=== PATIENT | male | born 1950 | race Caucasian/White ===

== ENCOUNTER 2018-02-07 08:35 | Inpatient (IN) | payer MEDICARE, OTHER ==
[~2018-02-07] VITALS: Ht 185.4 cm; Wt 130.2 kg
[2018-02-07] MEDS ORDERED: metoprolol tartrate 1mg/ml inj IV ONE (08:50)
[2018-02-07] MEDS ORDERED: furosemide 10 MG/1 ML 10ml inj IV ONE (08:50)
[2018-02-07] MEDS ORDERED: aspirin 81mg tab.chew PO ONE (08:50)
[2018-02-07 09:17] LABS: BASOPHILS % (AUTO) 0.4 % (0-1); EOSINOPHILS # (AUTO) 0.2 X10'3 (0-0.9); EOSINOPHILS % (AUTO) 1.6 % (0-6); HEMATOCRIT 44.9 % (42.0-52.0); HEMOGLOBIN 14.9 g/dl (14.0-17.9); LYMPHOCYTES # (AUTO) 1.4 X10'3 (1.1-4.8); LYMPHOCYTES % (AUTO) 14.7 % (21-51); MEAN CORPUSCULAR HEMOGLOBIN 28.3 PG (27.0-31.0); MEAN CORPUSCULAR HGB CONC 33.1 % (33.0-36.5); MEAN CORPUSCULAR VOLUME 85.5 FL (78-98); MEAN PLATELET VOLUME 7.4 FL (7.4-10.4); MONOCYTES # (AUTO) 0.8 X10'3 (0-0.9); MONOCYTES % (AUTO) 8.7 % (2-12); NEUTROPHILS # (AUTO) 7.3 X10'3 (1.8-7.7); NEUTROPHILS % (AUTO) 74.6 % (42-75); PLATELET COUNT 271 X10'3 (140-440); RED BLOOD COUNT 5.26 X10'6 (4.70-6.10); RED CELL DISTRIBUTION WIDTH 15.2 % (11.5-14.5); WHITE BLOOD COUNT 9.8 X10'3 (4.5-11.0)
[2018-02-07 09:28] LABS: D-DIMER 0.97 MG/L FEU (0-0.50)
[2018-02-07 09:32] LABS: ALANINE AMINOTRANSFERASE 27 U/L (12-78); ALBUMIN 3.2 G/DL (3.4-5.0); ALBUMIN/GLOBULIN RATIO 0.7 (1.1-1.5); ALKALINE PHOSPHATASE 86 IU/L (46-116); ANION GAP 12 (8-16); ASPARTATE AMINO TRANSFERASE 18 U/L (10-37); BILIRUBIN,TOTAL 0.6 MG/DL (0.1-1.0); BLOOD UREA NITROGEN 29 MG/DL (7-18); CALCIUM 8.9 MG/DL (8.5-10.1); CHLORIDE 103 MMOL/L (99-107); CREATININE 2.07 MG/DL (0.60-1.10); GLUCOSE 167 MG/DL (70-104); POTASSIUM 3.7 MMOL/L (3.5-5.1); SODIUM 139 MMOL/L (135-145); TOTAL CARBON DIOXIDE 24.4 MMOL/L (24-32); TOTAL PROTEIN 7.6 G/DL (6.4-8.2); eGFR 32 ML/MIN
[2018-02-07] MEDS ORDERED: magnesium Cl slow-release 64mg tablet PO PRN (10:30)
[2018-02-07] MEDS ORDERED: ondansetron/PF 4mg/2ml inj IV PRN (10:30)
[2018-02-07] MEDS ORDERED: potassium Cl 20 mEq SR tablet PO PRN (10:30)
[2018-02-07] MEDS ORDERED: mag hydrox/Alum hydrox/simeth 30ml oral suspension PO PRN (10:30)
[2018-02-07] MEDS ORDERED: magnesium 4gm in 100ml NS 100 ML IV PRN (10:30)
[2018-02-07] MEDS ORDERED: magnesium hydroxide 30ml (MOM) UD suspension PO PRN (10:30)
[2018-02-07] MEDS ORDERED: potassium Cl 40MEQ/NS 500ml 500 ML IV PRN ×2 (10:30)
[2018-02-07] MEDS ORDERED: magnesium 2GM in 50ml NS 50 ML IV PRN (10:30)
[2018-02-07] MEDS ORDERED: VITA400C21 PO (10:36)
[2018-02-07] MEDS ORDERED: CHOL10002 PO (10:36)
[2018-02-07] MEDS ORDERED: MULT-38 PO (10:36)
[2018-02-07] MEDS ORDERED: dextrose ORAL solution 15 GM/59 ML bottle PO PRN ×2 (10:45)
[2018-02-07] MEDS ORDERED: dextrose 50%-water 50ml dispensing syringe IV PRN ×2 (10:45)
[2018-02-07] MEDS ORDERED: glucagon, human recombinant 1mg kit SUBCUT PRN (10:45)
[2018-02-07] MEDS ORDERED: MESSAGE TO PHARMACY PO ONE (10:45)
[2018-02-07] MEDS ORDERED: insulin Lispro (HumaLOG) vial - multi-dose SQ SCH (10:45)
[2018-02-07 11:04] LABS: HEMOGLOBIN A1C 7.2 % (4.5-6.2)
[2018-02-07 12:40] VITALS: BP 151/91
[2018-02-07 16:06] VITALS: BP 155/89
[2018-02-07 19:00] VITALS: BP 151/88
[2018-02-07] MEDS: carvedilol 6.25mg tablet PO SCH (19:19)
[2018-02-07] MEDS: furosemide 40mg/4ml inj IV SCH (19:19)
[2018-02-07] MEDS: heparin, porcine 5000 units/ml vial SQ SCH (19:20)
[2018-02-07] MEDS: acetaminophen 325mg tablet PO PRN (20:29)
[2018-02-07] MEDS: insulin glargine (Lantus) pen - multi-dose SQ SCH (20:32)
[2018-02-07 23:00] VITALS: BP 149/85
[2018-02-08] VITALS (7 sets, daily range): BP systolic 122–184; BP diastolic 77–91
[2018-02-08 05:43] LABS: BASOPHILS % (AUTO) 0.6 % (0-1); EOSINOPHILS # (AUTO) 0.2 X10'3 (0-0.9); EOSINOPHILS % (AUTO) 2.5 % (0-6); HEMATOCRIT 43.1 % (42.0-52.0); LYMPHOCYTES # (AUTO) 2.2 X10'3 (1.1-4.8); LYMPHOCYTES % (AUTO) 26.5 % (21-51); MEAN CORPUSCULAR HEMOGLOBIN 28.1 PG (27.0-31.0); MEAN CORPUSCULAR HGB CONC 32.5 % (33.0-36.5); MEAN CORPUSCULAR VOLUME 86.4 FL (78-98); MONOCYTES # (AUTO) 0.9 X10'3 (0-0.9); MONOCYTES % (AUTO) 10.4 % (2-12); NEUTROPHILS # (AUTO) 4.9 X10'3 (1.8-7.7); PLATELET COUNT 255 X10'3 (140-440); RED BLOOD COUNT 4.99 X10'6 (4.70-6.10); RED CELL DISTRIBUTION WIDTH 14.2 % (11.5-14.5); WHITE BLOOD COUNT 8.2 X10'3 (4.5-11.0)
[2018-02-08 05:54] LABS: ALANINE AMINOTRANSFERASE 22 U/L (12-78); ALBUMIN 2.9 G/DL (3.4-5.0); ALBUMIN/GLOBULIN RATIO 0.8 (1.1-1.5); ALKALINE PHOSPHATASE 76 IU/L (46-116); ANION GAP 10 (8-16); ASPARTATE AMINO TRANSFERASE 18 U/L (10-37); BILIRUBIN,TOTAL 0.6 MG/DL (0.1-1.0); BLOOD UREA NITROGEN 30 MG/DL (7-18); BUN/CREATININE RATIO 13.6 (5.4-32.0); CALCIUM 8.4 MG/DL (8.5-10.1); CHLORIDE 105 MMOL/L (99-107); CHOL/HDL RATIO 4.5 (0.00-4.99); CHOLESTEROL 204 MG/DL (0-200); GLUCOSE 124 MG/DL (70-104); HDL CHOLESTEROL 45 MG/DL (35-60); LDL CHOLESTEROL 141 MG/DL (50-100); MAGNESIUM 1.9 MG/DL (1.5-2.4); POTASSIUM 3.4 MMOL/L (3.5-5.1); SODIUM 142 MMOL/L (135-145); TOTAL CARBON DIOXIDE 26.9 MMOL/L (24-32); TOTAL PROTEIN 6.7 G/DL (6.4-8.2); TRIGLYCERIDES 118 MG/DL (20-135); eGFR 30 ML/MIN
[2018-02-08] MEDS: heparin, porcine 5000 units/ml vial SQ SCH ×2 (07:09→19:46)
[2018-02-08] MEDS: potassium Cl 20 mEq SR tablet PO PRN ×3 (07:10→19:47)
[2018-02-08] MEDS: carvedilol 6.25mg tablet PO SCH ×2 (07:10→19:45)
[2018-02-08] MEDS: acetaminophen 325mg tablet PO PRN (07:40)
[2018-02-08] MEDS: K and/or MAG REPLACEMENT MC SCH (08:00)
[2018-02-08] MEDS: furosemide 40mg/4ml inj IV SCH (10:31)
[2018-02-08] MEDS: ipratropium/albuterol 3ml nebule NEB PRN (12:51)
[2018-02-08] MEDS: insulin glargine (Lantus) pen - multi-dose SQ SCH (21:00)
[2018-02-09 03:00] VITALS: BP 152/88
[2018-02-09 05:16] LABS: BASOPHILS % (AUTO) 0.4 % (0-1); EOSINOPHILS # (AUTO) 0.3 X10'3 (0-0.9); EOSINOPHILS % (AUTO) 2.9 % (0-6); HEMATOCRIT 41.2 % (42.0-52.0); HEMOGLOBIN 13.7 g/dl (14.0-17.9); LYMPHOCYTES # (AUTO) 2.5 X10'3 (1.1-4.8); LYMPHOCYTES % (AUTO) 25.2 % (21-51); MEAN CORPUSCULAR HEMOGLOBIN 28.4 PG (27.0-31.0); MEAN CORPUSCULAR HGB CONC 33.2 % (33.0-36.5); MEAN CORPUSCULAR VOLUME 85.5 FL (78-98); MEAN PLATELET VOLUME 7.6 FL (7.4-10.4); MONOCYTES # (AUTO) 1.1 X10'3 (0-0.9); MONOCYTES % (AUTO) 10.7 % (2-12); NEUTROPHILS % (AUTO) 60.8 % (42-75); PLATELET COUNT 253 X10'3 (140-440); RED BLOOD COUNT 4.82 X10'6 (4.70-6.10); RED CELL DISTRIBUTION WIDTH 14.9 % (11.5-14.5); WHITE BLOOD COUNT 9.9 X10'3 (4.5-11.0)
[2018-02-09] MEDS: ipratropium/albuterol 3ml nebule NEB PRN ×2 (05:23→07:38)
[2018-02-09 05:49] LABS: ALANINE AMINOTRANSFERASE 24 U/L (12-78); ALBUMIN 2.9 G/DL (3.4-5.0); ALBUMIN/GLOBULIN RATIO 0.7 (1.1-1.5); ALKALINE PHOSPHATASE 76 IU/L (46-116); ANION GAP 11 (8-16); ASPARTATE AMINO TRANSFERASE 21 U/L (10-37); BILIRUBIN,TOTAL 0.5 MG/DL (0.1-1.0); BLOOD UREA NITROGEN 32 MG/DL (7-18); BUN/CREATININE RATIO 14.5 (5.4-32.0); CALCIUM 8.5 MG/DL (8.5-10.1); CHLORIDE 104 MMOL/L (99-107); GLUCOSE 136 MG/DL (70-104); MAGNESIUM 2.2 MG/DL (1.5-2.4); POTASSIUM 3.9 MMOL/L (3.5-5.1); SODIUM 142 MMOL/L (135-145); TOTAL PROTEIN 6.9 G/DL (6.4-8.2); eGFR 30 ML/MIN
[2018-02-09 06:00] VITALS: BP 145/85
[2018-02-09] MEDS: carvedilol 6.25mg tablet PO SCH ×2 (07:44→20:13)
[2018-02-09] MEDS: heparin, porcine 5000 units/ml vial SQ SCH ×2 (07:45→20:14)
[2018-02-09] MEDS: furosemide 40mg/4ml inj IV SCH (07:51)
[2018-02-09] MEDS: K and/or MAG REPLACEMENT MC SCH (07:56)
[2018-02-09 11:00] VITALS: BP 132/82
[2018-02-09 15:00] VITALS: BP 133/84
[2018-02-09] MEDS ORDERED: mag hydrox/Alum hydrox/simeth 30ml oral suspension PO ONE (15:25)
[2018-02-09] MEDS: pantoprazole 40mg Tablet.DR PO SCH (15:42)
[2018-02-09 18:00] VITALS: BP 129/77
[2018-02-09] MEDS: insulin glargine (Lantus) pen - multi-dose SQ SCH (21:00)
[2018-02-09 22:00] VITALS: BP 157/89
[2018-02-10 02:00] VITALS: BP 132/79
[2018-02-10 05:21] LABS: BASOPHILS % (AUTO) 0.5 % (0-1); EOSINOPHILS # (AUTO) 0.3 X10'3 (0-0.9); EOSINOPHILS % (AUTO) 2.6 % (0-6); HEMATOCRIT 39.6 % (42.0-52.0); HEMOGLOBIN 13.1 g/dl (14.0-17.9); LYMPHOCYTES # (AUTO) 2.4 X10'3 (1.1-4.8); LYMPHOCYTES % (AUTO) 23.5 % (21-51); MEAN CORPUSCULAR HEMOGLOBIN 28.3 PG (27.0-31.0); MEAN CORPUSCULAR HGB CONC 33.2 % (33.0-36.5); MEAN CORPUSCULAR VOLUME 85.4 FL (78-98); MEAN PLATELET VOLUME 7.7 FL (7.4-10.4); MONOCYTES # (AUTO) 1.1 X10'3 (0-0.9); MONOCYTES % (AUTO) 10.7 % (2-12); NEUTROPHILS # (AUTO) 6.3 X10'3 (1.8-7.7); NEUTROPHILS % (AUTO) 62.7 % (42-75); PLATELET COUNT 242 X10'3 (140-440); RED BLOOD COUNT 4.64 X10'6 (4.70-6.10); RED CELL DISTRIBUTION WIDTH 14.7 % (11.5-14.5); WHITE BLOOD COUNT 10.1 X10'3 (4.5-11.0)
[2018-02-10 05:49] LABS: ALANINE AMINOTRANSFERASE 25 U/L (12-78); ALBUMIN 2.9 G/DL (3.4-5.0); ALBUMIN/GLOBULIN RATIO 0.8 (1.1-1.5); ALKALINE PHOSPHATASE 73 IU/L (46-116); ANION GAP 10 (8-16); ASPARTATE AMINO TRANSFERASE 23 U/L (10-37); BILIRUBIN,TOTAL 0.5 MG/DL (0.1-1.0); BLOOD UREA NITROGEN 35 MG/DL (7-18); BUN/CREATININE RATIO 15.1 (5.4-32.0); CALCIUM 8.2 MG/DL (8.5-10.1); CHLORIDE 102 MMOL/L (99-107); CREATININE 2.32 MG/DL (0.60-1.10); GLUCOSE 129 MG/DL (70-104); MAGNESIUM 2.4 MG/DL (1.5-2.4); POTASSIUM 4.2 MMOL/L (3.5-5.1); SODIUM 139 MMOL/L (135-145); TOTAL CARBON DIOXIDE 26.8 MMOL/L (24-32); TOTAL PROTEIN 6.7 G/DL (6.4-8.2); eGFR 28 ML/MIN
[2018-02-10 06:00] VITALS: BP 142/86
[2018-02-10] MEDS: carVEDilol 12.5mg tablet PO SCH ×2 (07:16→20:04)
[2018-02-10] MEDS: furosemide 40mg/4ml inj IV SCH (07:16)
[2018-02-10] MEDS: heparin, porcine 5000 units/ml vial SQ SCH ×2 (07:17→20:05)
[2018-02-10] MEDS: pantoprazole 40mg Tablet.DR PO SCH (07:17)
[2018-02-10] MEDS: K and/or MAG REPLACEMENT MC SCH (07:23)
[2018-02-10] MEDS: ipratropium/albuterol 3ml nebule NEB PRN (07:59)
[2018-02-10] MEDS ORDERED: carVEDilol 3.125mg tablet PO SCH (08:00)
[2018-02-10] MEDS: aspirin 81mg tab.chew PO SCH (09:02)
[2018-02-10 11:00] VITALS: BP 144/83
[2018-02-10] MEDS: azithromycin/NS 500mg/250ml 250 ML IV SCH (12:39)
[2018-02-10] MEDS: CefTRIAXone 2gm/D5W 50ml 50 ML IV SCH (13:50)
[2018-02-10 19:00] VITALS: BP 139/80
[2018-02-10] MEDS: furosemide 20 MG/2 ML vial IV SCH (20:04)
[2018-02-10] MEDS: lactobacillus rhamnosus 10,000 MMU CELLS/CAPSULE PO SCH (20:04)
[2018-02-10] MEDS: insulin glargine (Lantus) pen - multi-dose SQ SCH (21:00)
[2018-02-10 23:00] VITALS: BP 128/81
[2018-02-11 03:00] VITALS: BP 139/79
[2018-02-11 05:17] LABS: BASOPHILS % (AUTO) 0.5 % (0-1); EOSINOPHILS # (AUTO) 0.2 X10'3 (0-0.9); EOSINOPHILS % (AUTO) 2.3 % (0-6); HEMATOCRIT 39.3 % (42.0-52.0); HEMOGLOBIN 13.1 g/dl (14.0-17.9); LYMPHOCYTES # (AUTO) 1.9 X10'3 (1.1-4.8); LYMPHOCYTES % (AUTO) 20.6 % (21-51); MEAN CORPUSCULAR HEMOGLOBIN 28.5 PG (27.0-31.0); MEAN CORPUSCULAR HGB CONC 33.4 % (33.0-36.5); MEAN CORPUSCULAR VOLUME 85.3 FL (78-98); MEAN PLATELET VOLUME 7.6 FL (7.4-10.4); MONOCYTES % (AUTO) 11.3 % (2-12); NEUTROPHILS % (AUTO) 65.3 % (42-75); PLATELET COUNT 231 X10'3 (140-440); RED CELL DISTRIBUTION WIDTH 14.5 % (11.5-14.5); WHITE BLOOD COUNT 9.1 X10'3 (4.5-11.0)
[2018-02-11 05:28] LABS: ALANINE AMINOTRANSFERASE 29 U/L (12-78); ALBUMIN 2.9 G/DL (3.4-5.0); ALBUMIN/GLOBULIN RATIO 0.8 (1.1-1.5); ALKALINE PHOSPHATASE 70 IU/L (46-116); ANION GAP 11 (8-16); BILIRUBIN,TOTAL 0.6 MG/DL (0.1-1.0); BLOOD UREA NITROGEN 40 MG/DL (7-18); BUN/CREATININE RATIO 17.8 (5.4-32.0); CALCIUM 8.2 MG/DL (8.5-10.1); CHLORIDE 102 MMOL/L (99-107); CREATININE 2.25 MG/DL (0.60-1.10); GLUCOSE 119 MG/DL (70-104); MAGNESIUM 2.4 MG/DL (1.5-2.4); SODIUM 139 MMOL/L (135-145); TOTAL CARBON DIOXIDE 25.9 MMOL/L (24-32); TOTAL PROTEIN 6.7 G/DL (6.4-8.2); eGFR 29 ML/MIN
[2018-02-11 05:29] LABS: ASPARTATE AMINO TRANSFERASE 31 U/L (10-37); POTASSIUM 3.8 MMOL/L (3.5-5.1)
[2018-02-11 06:59] VITALS: BP 146/77
[2018-02-11] MEDS: K and/or MAG REPLACEMENT MC SCH (07:10)
[2018-02-11] MEDS: heparin, porcine 5000 units/ml vial SQ SCH ×2 (08:03→21:16)
[2018-02-11] MEDS: carVEDilol 12.5mg tablet PO SCH ×2 (08:03→21:19)
[2018-02-11] MEDS: pantoprazole 40mg Tablet.DR PO SCH (08:03)
[2018-02-11] MEDS: lactobacillus rhamnosus 10,000 MMU CELLS/CAPSULE PO SCH ×2 (08:03→21:16)
[2018-02-11] MEDS: furosemide 20 MG/2 ML vial IV SCH ×2 (08:03→21:15)
[2018-02-11] MEDS: CefTRIAXone 2gm/D5W 50ml 50 ML IV SCH (08:03)
[2018-02-11] MEDS: aspirin 81mg tab.chew PO SCH (08:03)
[2018-02-11] MEDS: azithromycin/NS 500mg/250ml 250 ML IV SCH (08:03)
[2018-02-11] MEDS ORDERED: ipratropium/albuterol 3ml nebule ONE (08:59)
[2018-02-11] MEDS ORDERED: ipratropium/albuterol 3ml nebule NEB ONE (09:30)
[2018-02-11 11:44] VITALS: BP 120/78
[2018-02-11 16:04] VITALS: BP 142/78
[2018-02-11 19:00] VITALS: BP 140/82
[2018-02-11] MEDS: insulin glargine (Lantus) pen - multi-dose SQ SCH (21:00)
[2018-02-11 23:00] VITALS: BP 142/84
[2018-02-12 03:00] VITALS: BP 132/80
[2018-02-12 05:23] LABS: BASOPHILS % (AUTO) 0.4 % (0-1); EOSINOPHILS # (AUTO) 0.2 X10'3 (0-0.9); EOSINOPHILS % (AUTO) 2.7 % (0-6); HEMATOCRIT 39.6 % (42.0-52.0); HEMOGLOBIN 13.2 g/dl (14.0-17.9); LYMPHOCYTES # (AUTO) 1.9 X10'3 (1.1-4.8); LYMPHOCYTES % (AUTO) 23.3 % (21-51); MEAN CORPUSCULAR HEMOGLOBIN 28.4 PG (27.0-31.0); MEAN CORPUSCULAR HGB CONC 33.4 % (33.0-36.5); MEAN CORPUSCULAR VOLUME 85.1 FL (78-98); MEAN PLATELET VOLUME 7.8 FL (7.4-10.4); MONOCYTES % (AUTO) 11.9 % (2-12); NEUTROPHILS # (AUTO) 5.1 X10'3 (1.8-7.7); NEUTROPHILS % (AUTO) 61.7 % (42-75); PLATELET COUNT 226 X10'3 (140-440); RED BLOOD COUNT 4.65 X10'6 (4.70-6.10); RED CELL DISTRIBUTION WIDTH 14.7 % (11.5-14.5); WHITE BLOOD COUNT 8.2 X10'3 (4.5-11.0)
[2018-02-12 05:34] LABS: ALANINE AMINOTRANSFERASE 34 U/L (12-78); ALBUMIN/GLOBULIN RATIO 0.8 (1.1-1.5); ALKALINE PHOSPHATASE 71 IU/L (46-116); ANION GAP 9 (8-16); ASPARTATE AMINO TRANSFERASE 30 U/L (10-37); BILIRUBIN,TOTAL 0.5 MG/DL (0.1-1.0); BLOOD UREA NITROGEN 42 MG/DL (7-18); BUN/CREATININE RATIO 18.5 (5.4-32.0); CALCIUM 8.7 MG/DL (8.5-10.1); CHLORIDE 103 MMOL/L (99-107); CREATININE 2.27 MG/DL (0.60-1.10); GLUCOSE 109 MG/DL (70-104); MAGNESIUM 2.4 MG/DL (1.5-2.4); SODIUM 140 MMOL/L (135-145); TOTAL CARBON DIOXIDE 28.1 MMOL/L (24-32); TOTAL PROTEIN 6.9 G/DL (6.4-8.2); eGFR 29 ML/MIN
[2018-02-12 05:44] LABS: POTASSIUM 3.8 MMOL/L (3.5-5.1)
[2018-02-12 06:58] VITALS: BP 158/86
[2018-02-12] MEDS: K and/or MAG REPLACEMENT MC SCH (07:09)
[2018-02-12] MEDS: CefTRIAXone 2gm/D5W 50ml 50 ML IV SCH (07:29)
[2018-02-12] MEDS: furosemide 20 MG/2 ML vial IV SCH (07:30)
[2018-02-12] MEDS: aspirin 81mg tab.chew PO SCH (07:30)
[2018-02-12] MEDS: carVEDilol 12.5mg tablet PO SCH (07:30)
[2018-02-12] MEDS: pantoprazole 40mg Tablet.DR PO SCH (07:30)
[2018-02-12] MEDS: heparin, porcine 5000 units/ml vial SQ SCH (07:30)
[2018-02-12] MEDS: lactobacillus rhamnosus 10,000 MMU CELLS/CAPSULE PO SCH (07:30)
[2018-02-12] MEDS ORDERED: azithromycin 250mg tablet PO SCH (08:00)
[2018-02-12] MEDS ORDERED: CARV-50 PO (11:23)
[2018-02-12] MEDS ORDERED: CEFD300C3 PO (11:23)
[2018-02-12] MEDS ORDERED: LISI2.5T2 PO (11:23)
[2018-02-12] MEDS ORDERED: ASPI81TA52 PO (11:23)
[2018-02-12] MEDS ORDERED: FURO-149 PO (11:23)
[2018-02-12 12:12] VITALS: BP 130/81
[2018-02-12] MEDS ORDERED: LANC1COM2 SUBCUT (16:20)
[2018-02-12] MEDS ORDERED: LANTUS SQ (16:20)
[2018-02-12] MEDS ORDERED: SYRI-641 SQ (16:20)
== END 2018-02-12 12:25 | disposition home or self-care (01) | DRG 291 ==
LOC: ER 08:35 → ED HOLD 10:30 → EDBEDREQ 11:39 → PCU 3S 12:56
PROVIDERS: ADMIT Internal Medicine; ATTEND Family Medicine
DX: I13.0 Hypertensive heart and chronic kidney disease with heart failure and stage 1 through stage 4 chronic kidney disease, or unspecified chronic kidney disease (principal); J96.90 Respiratory failure, unspecified, unspecified whether with hypoxia or hypercapnia; I50.31 Acute diastolic (congestive) heart failure; J18.9 Pneumonia, unspecified organism; N17.9 Acute kidney failure, unspecified; E11.22 Type 2 diabetes mellitus with diabetic chronic kidney disease; N18.9 Chronic kidney disease, unspecified; Z77.22 Contact with and (suspected) exposure to environmental tobacco smoke (acute) (chronic); M79.89 Other specified soft tissue disorders; E66.9 Obesity, unspecified; J44.9 Chronic obstructive pulmonary disease, unspecified; G47.30 Sleep apnea, unspecified; Z80.42 Family history of malignant neoplasm of prostate; Z83.3 Family history of diabetes mellitus; Z59.9 Problem related to housing and economic circumstances, unspecified; Z68.37 Body mass index [BMI] 37.0-37.9, adult
CPT/HCPCS: 36415; 71045; 71250; 76775; 78582; 80053; 80061; 82948; 83036; 83735; 83880; 84484; 85025; 85379; 87070; 93005; 93306; 93970; 94640; 94760; 96374; 96375; 99285; A9539; A9540; J0456; J0696; J1644; J1815; J1940; J3490; J7030

== ENCOUNTER 2019-04-15 21:52 | Inpatient (IN) | payer MEDICARE, OTHER ==
[~2019-04-15] VITALS: Ht 185.4 cm; Wt 122.7 kg
[~2019-04-15 21:52] MED LIST: ASPI81TA52 PO; CARV-50 PO; CHOL10002 PO; FURO-149 PO; LANC1COM2 SUBCUT; LISI2.5T2 PO; MULT-38 PO; SYRI-641 SQ; VITA400C21 PO
[2019-04-15 22:30] LABS: BASOPHILS % (AUTO) 0.2 % (0-1); EOSINOPHILS % (AUTO) 0.1 % (0-6); HEMATOCRIT 37.8 % (42.0-52.0); HEMOGLOBIN 12.6 g/dl (14.0-17.9); LYMPHOCYTES # (AUTO) 0.3 X10'3 (1.1-4.8); LYMPHOCYTES % (AUTO) 1.5 % (21-51); MEAN CORPUSCULAR HEMOGLOBIN 30.2 PG (27.0-31.0); MEAN CORPUSCULAR HGB CONC 33.4 g/dL (33.0-36.5); MEAN CORPUSCULAR VOLUME 90.2 FL (78-98); MEAN PLATELET VOLUME 7.3 FL (7.4-10.4); MONOCYTES # (AUTO) 1.4 X10'3 (0-0.9); NEUTROPHILS # (AUTO) 18.8 X10'3 (1.8-7.7); NEUTROPHILS % (AUTO) 91.2 % (42-75); PLATELET COUNT 184 X10'3 (140-440); RED BLOOD COUNT 4.19 X10'6 (4.70-6.10); RED CELL DISTRIBUTION WIDTH 15.1 % (11.5-14.5); WHITE BLOOD COUNT 20.6 X10'3 (4.5-11.0)
[2019-04-15 22:42] LABS: ALANINE AMINOTRANSFERASE 25 U/L (12-78); ALBUMIN 3.6 G/DL (3.4-5.0); ALKALINE PHOSPHATASE 60 IU/L (46-116); ANION GAP 12 (8-16); ASPARTATE AMINO TRANSFERASE 17 U/L (10-37); BILIRUBIN,TOTAL 0.5 MG/DL (0.1-1.0); BLOOD UREA NITROGEN 51 MG/DL (7-18); BUN/CREATININE RATIO 21.3 (5.4-32.0); CHLORIDE 104 MMOL/L (99-107); CREATININE 2.39 MG/DL (0.60-1.10); GLUCOSE 116 MG/DL (70-104); SODIUM 138 MMOL/L (135-145); TOTAL CARBON DIOXIDE 21.7 MMOL/L (24-32); TOTAL PROTEIN 7.3 G/DL (6.4-8.2); eGFR 27 ML/MIN
[2019-04-15 22:44] LABS: PARTIAL THROMBOPLASTIN TIME 31 SECONDS (22-32)
[2019-04-15] MEDS ORDERED: ALLO100T PO (22:51)
[2019-04-15] MEDS ORDERED: SODI325T PO (22:51)
[2019-04-15] MEDS ORDERED: FLO0.4C PO (22:51)
[2019-04-15] MEDS ORDERED: furosemide 40mg/4ml inj IV ONE (23:45)
[2019-04-15] MEDS ORDERED: furosemide 10 MG/1 ML 10ml inj IV ONE (23:45)
--- NOTE | 2019-04-15 23:55 | NUR ---
Spoke with Dr Duong regarding order for 80mg of lasix to be given MD made aware of BP 106/52. per Dr Duong medication to be given as ordered at this time.
[2019-04-16] MEDS ORDERED: furosemide 10 MG/1 ML 10ml inj IV ONE (00:05)
[2019-04-16] MEDS ORDERED: furosemide 20 MG/2 ML vial IV ONE (00:10)
--- NOTE | 2019-04-16 00:16 | NUR ---
Patient refused 80mg of lasix, stated that the last amount that he was prescribed by his digital computer operator was 20mg and that is all he would be willing to take. Informed Dr Duong and order was changed to 20mg lasix at this time
[2019-04-16] MEDS ORDERED: CefTRIAXone 2gm/D5W 50ml 50 ML IV ONE (01:05)
[2019-04-16] MEDS ORDERED: magnesium hydroxide 30ml (MOM) UD suspension PO PRN (01:15)
[2019-04-16] MEDS ORDERED: ondansetron/PF 4mg/2ml inj IV PRN (01:15)
[2019-04-16] MEDS ORDERED: acetaminophen 325mg tablet PO PRN (01:15)
[2019-04-16] MEDS ORDERED: mag hydrox/Alum hydrox/simeth 30ml oral suspension PO PRN (01:15)
[2019-04-16 01:58] LABS: CLARITY,URINE CLEAR (Clear); COLOR,URINE YELLOW (Yellow); GLUCOSE, URINE NEGATIVE (Neg); KETONES,URINE TRACE mg/dl (Neg); LEUKOCYTE ESTERASE ,URINE NEGATIVE (Neg); NITRITES, URINE NEGATIVE (Neg); OCCULT BLOOD,URINE NEGATIVE (Neg); PH,URINE 5.5 (4.8-8.0); PROTEIN,URINE 30 mg/dl (Neg); UROBILINOGEN,URINE 0.2 E.U/dL (0.2-1.0)
[2019-04-16 01:59] LABS: UA COLLECTION TYPE CLN CATCH MIDSTREAM
[2019-04-16 02:04] LABS: BACTERIA,URINE NONE SEEN /HPF (Neg); MUCUS STRANDS NONE SEEN /LPF (Neg); RBC,URINE NONE SEEN /HPF (0-2); SQUAMOUS EPITHELIAL CELL,UR NONE SEEN /LPF (FEW); WBC,URINE NONE SEEN /HPF (0-4)
--- NOTE | 2019-04-16 02:14 | NUR ---
I have received report from Benjie MCMILLAN and had the opportunity to ask questions and awaiting arrival of patient to the PCU unit.
--- NOTE | 2019-04-16 02:25 | NUR ---
Patient arrived to the PCU unit from the ED at this time. He is alert and oriented and able to make his needs known. He was able to ambulate from the gurney to the bed with standby assistance. He denies any pain at this time. He is on room air. is at bedside. Skin check performed with second RN Paulina. Vitals are stable except temp slightly elevated at 100.8 orally. Will continue to monitor.
[2019-04-16 02:30] VITALS: BP 121/55
[2019-04-16 04:57] LABS: HEMOGLOBIN A1C 5.3 % (4.5-6.2)
--- NOTE | 2019-04-16 06:25 | NUR ---
Problems reprioritized. Patient report given, questions answered & plan of care reviewed with Cate MCMILLAN.
[2019-04-16 06:30] VITALS: BP 119/52
--- NOTE | 2019-04-16 06:43 | NUR ---
Patient in room PCU 3020. I have received report from May MCMILLAN and had the opportunity to ask questions and assume patient care.
[2019-04-16] MEDS: sodium bicarbonate 650mg tablet PO SCH ×2 (07:56→20:05)
[2019-04-16] MEDS: vitamin E 400 unit capsule PO SCH (07:57)
[2019-04-16] MEDS: allopurinol 100mg tablet PO SCH (07:57)
[2019-04-16] MEDS: tamsulosin 0.4mg capsule PO SCH (07:57)
[2019-04-16] MEDS: aspirin 81mg tablet.DR PO SCH (07:57)
[2019-04-16] MEDS: vitamin D (cholecalciferol) 1,000 unit tablet PO SCH (07:57)
[2019-04-16] MEDS: carVEDilol 12.5mg tablet PO SCH ×2 (07:57→20:04)
[2019-04-16] MEDS: heparin, porcine 5000 units/ml vial SQ SCH ×2 (07:58→20:06)
[2019-04-16] MEDS ORDERED: lisinopril 2.5mg tablet PO SCH (08:00)
--- NOTE | 2019-04-16 09:06 | NUR ---
Paged Dr Keys with patient request regarding blood sugar checks PAGER ID: [phone] MESSAGE: Cate [phone]. RE: Arturjuanpablo Ariella Diego. Pt is diabetic, manages with diet only, A1C is 5.3. Pt checks blood sugar BID at home and is requesting we check him BID here as well. Can I place an order for those checks? Thank you Addendum: 04/16/19 at 0943 by Cate Velazquez RN Dr Keys responded that there is no need to do glucometer checks, and to let patient know that we are checking his glucose with morning labs.
[2019-04-16 11:00] VITALS: BP 94/49
[2019-04-16 15:00] VITALS: BP 117/48
--- NOTE | 2019-04-16 18:05 | NUR ---
Patient in room PCU 3020. I have received report from Cate MCMILLAN and had the opportunity to ask questions and assume patient care.
--- NOTE | 2019-04-16 18:15 | NUR ---
Paged Dr Keys regarding patients home CPAP PAGER ID: [phone] MESSAGE: Cate PIERRE; Yari Suarez 3020 Pt has home CPAP to use here, can we place an order for it? Thank you!
--- NOTE | 2019-04-16 18:24 | NUR ---
Patients temp was 101.3 at 1730. Offered patient tylenol but he refused, stating that he just drank hot tea. Due to patient fighting infection and sustained 100 temp this afternoon, informed night nurse and they will monitor closely.
--- NOTE | 2019-04-16 18:28 | NUR ---
Problems reprioritized. Patient report given, questions answered & plan of care reviewed with Lavell RN.
[2019-04-16 19:00] VITALS: BP 102/47
[2019-04-16] MEDS: lisinopril 2.5mg tablet PO SCH (20:05)
[2019-04-16 23:00] VITALS: BP 112/48
[2019-04-17 03:00] VITALS: BP 113/50
[2019-04-17 04:57] LABS: BASOPHILS % (AUTO) 0.1 % (0-1); EOSINOPHILS % (AUTO) 0 % (0-6); HEMOGLOBIN 11.4 g/dl (14.0-17.9); LYMPHOCYTES # (AUTO) 0.6 X10'3 (1.1-4.8); LYMPHOCYTES % (AUTO) 4.6 % (21-51); MEAN CORPUSCULAR HEMOGLOBIN 30.2 PG (27.0-31.0); MEAN CORPUSCULAR HGB CONC 33.6 g/dL (33.0-36.5); MEAN CORPUSCULAR VOLUME 89.9 FL (78-98); MONOCYTES # (AUTO) 1.1 X10'3 (0-0.9); MONOCYTES % (AUTO) 8.7 % (2-12); NEUTROPHILS # (AUTO) 10.8 X10'3 (1.8-7.7); NEUTROPHILS % (AUTO) 86.6 % (42-75); PLATELET COUNT 163 X10'3 (140-440); RED BLOOD COUNT 3.78 X10'6 (4.70-6.10); RED CELL DISTRIBUTION WIDTH 15.1 % (11.5-14.5); WHITE BLOOD COUNT 12.5 X10'3 (4.5-11.0)
[2019-04-17 05:27] LABS: ALANINE AMINOTRANSFERASE 33 U/L (12-78); ALBUMIN 2.6 G/DL (3.4-5.0); ALBUMIN/GLOBULIN RATIO 0.7 (1.1-1.5); ALKALINE PHOSPHATASE 50 IU/L (46-116); ANION GAP 10 (8-16); ASPARTATE AMINO TRANSFERASE 33 U/L (10-37); BILIRUBIN,TOTAL 0.4 MG/DL (0.1-1.0); BLOOD UREA NITROGEN 49 MG/DL (7-18); BUN/CREATININE RATIO 17.4 (5.4-32.0); CALCIUM 8.1 MG/DL (8.5-10.1); CHLORIDE 105 MMOL/L (99-107); CREATININE 2.82 MG/DL (0.60-1.10); GLUCOSE 107 MG/DL (70-104); POTASSIUM 3.9 MMOL/L (3.5-5.1); SODIUM 138 MMOL/L (135-145); TOTAL CARBON DIOXIDE 23.5 MMOL/L (24-32); TOTAL PROTEIN 6.5 G/DL (6.4-8.2); eGFR 23 ML/MIN
[2019-04-17 06:00] VITALS: BP 123/56
--- NOTE | 2019-04-17 06:25 | NUR ---
Problems reprioritized. Patient report given, questions answered & plan of care reviewed with Gifty MCMILLAN.
[2019-04-17] MEDS: carVEDilol 12.5mg tablet PO SCH ×2 (08:20→20:02)
[2019-04-17] MEDS: vitamin E 400 unit capsule PO SCH (08:20)
[2019-04-17] MEDS: tamsulosin 0.4mg capsule PO SCH (08:20)
[2019-04-17] MEDS: sodium bicarbonate 650mg tablet PO SCH ×2 (08:20→20:02)
[2019-04-17] MEDS: vitamin D (cholecalciferol) 1,000 unit tablet PO SCH (08:20)
[2019-04-17] MEDS: aspirin 81mg tablet.DR PO SCH (08:20)
[2019-04-17] MEDS: allopurinol 100mg tablet PO SCH (08:21)
[2019-04-17] MEDS: heparin, porcine 5000 units/ml vial SQ SCH ×2 (08:21→20:15)
--- NOTE | 2019-04-17 09:54 | NUR ---
Dietary alert: Noted that patient is requesting gluten free, keto diet type foods. Patient is on a renal, carbohydrate controlled diet. No documented gluten intolerance in patient's EMR. Patient met at bedside and RD provided verbal education on current physician diet order. Discussed that the diet order required minimum of 45 grams carbohydrates with meals, pt verbalized understanding and RD assisted pt with menu selections. Pt has no gluten intolerance however prefers not to consume gluten products for his DM management, further reports he is lactose intolerant, food preferences for vegetables include broccoli. declines other vegetables and fruits however will send fruit on tray as it is described in diet order. Will send double protein to help meet patient's needs and increase satiety. Addendum: 04/17/19 at [address] Amended: Links added.
[2019-04-17 11:00] VITALS: BP 108/74
[2019-04-17 15:00] VITALS: BP 115/55
[2019-04-17 18:00] VITALS: BP 142/61
--- NOTE | 2019-04-17 18:10 | NUR ---
Patient in room PCU 3020. I have received report from HIPOLITO Durbin and had the opportunity to ask questions and assume patient care. Pt is alert and oriented X4, denies chest pain, no IV's running.. PT c/o of discomfort in rt leg and requested lotion for it. Left leg is red form the knee to bottom of leg. Will send note to informing him of latest development and to please advice. Will continue to monitor
--- NOTE | 2019-04-17 18:45 | NUR ---
Problems reprioritized. Patient report given, questions answered & plan of care reviewed with HIPOLITO Portillo. Patient stable at transfer of care.
--- NOTE | 2019-04-17 18:56 | NUR ---
[place] documentation: I have reviewed and agree with all interventions, assessments performed and documented by Reema MCMILLAN. [place] Medication Administration: For this medication-pass time frame, all medication were reviewed, dispensed, administered and documented per hospital policy by Reema MCMILLAN.
--- NOTE | 2019-04-17 19:10 | NUR ---
Pt complaining of pain in LLE. Upon examination the extremity is HOT, red from knee to ankle, has slight +1 non-pitting edema in comparison to the other leg, and is painful to the touch. No obvious open wounds, but pt was admitted with leukocytosis for which he only received a one time dose of 2gm Rocephin IV. Pt spike temp of 101F last night, and has maintained a low-grade fever all day around 99. Called Dr. Garza who ordered 1g Rocephin daily, first dose now and Vancomycin with pharmacy to dose. Entering orders now.
[2019-04-17] MEDS: lisinopril 2.5mg tablet PO SCH (20:03)
[2019-04-17] MEDS: CefTRIAXone/D5W-Rocephin 1gm 50 ML IV SCH (20:04)
[2019-04-17 22:00] VITALS: BP 118/60
[2019-04-18 02:00] VITALS: BP 119/56
[2019-04-18 05:47] LABS: BASOPHILS % (AUTO) 0.5 % (0-1); EOSINOPHILS # (AUTO) 0.1 X10'3 (0-0.9); EOSINOPHILS % (AUTO) 1.4 % (0-6); HEMATOCRIT 33.5 % (42.0-52.0); HEMOGLOBIN 11.3 g/dl (14.0-17.9); LYMPHOCYTES # (AUTO) 1.1 X10'3 (1.1-4.8); LYMPHOCYTES % (AUTO) 12.4 % (21-51); MEAN CORPUSCULAR HEMOGLOBIN 30.3 PG (27.0-31.0); MEAN CORPUSCULAR HGB CONC 33.6 g/dL (33.0-36.5); MEAN PLATELET VOLUME 7.1 FL (7.4-10.4); MONOCYTES # (AUTO) 1.3 X10'3 (0-0.9); MONOCYTES % (AUTO) 15.1 % (2-12); NEUTROPHILS # (AUTO) 6.3 X10'3 (1.8-7.7); NEUTROPHILS % (AUTO) 70.6 % (42-75); PLATELET COUNT 173 X10'3 (140-440); RED BLOOD COUNT 3.73 X10'6 (4.70-6.10); RED CELL DISTRIBUTION WIDTH 15.1 % (11.5-14.5); WHITE BLOOD COUNT 8.9 X10'3 (4.5-11.0)
[2019-04-18 05:48] LABS: ALANINE AMINOTRANSFERASE 40 U/L (12-78); ALBUMIN 2.4 G/DL (3.4-5.0); ALBUMIN/GLOBULIN RATIO 0.6 (1.1-1.5); ALKALINE PHOSPHATASE 63 IU/L (46-116); ANION GAP 12 (8-16); ASPARTATE AMINO TRANSFERASE 32 U/L (10-37); BILIRUBIN,TOTAL 0.3 MG/DL (0.1-1.0); BLOOD UREA NITROGEN 53 MG/DL (7-18); BUN/CREATININE RATIO 17.7 (5.4-32.0); CALCIUM 8.2 MG/DL (8.5-10.1); CHLORIDE 107 MMOL/L (99-107); GLUCOSE 100 MG/DL (70-104); POTASSIUM 3.9 MMOL/L (3.5-5.1); SODIUM 141 MMOL/L (135-145); TOTAL CARBON DIOXIDE 22.2 MMOL/L (24-32); TOTAL PROTEIN 6.4 G/DL (6.4-8.2); eGFR 21 ML/MIN
--- NOTE | 2019-04-18 06:15 | NUR ---
Problems reprioritized. Patient report given to questions answered & plan of care reviewed with HIPOLITO Richey. Patient is stable at shift change
--- NOTE | 2019-04-18 06:17 | NUR ---
Patient in room PCU 3020. I have received report from Nayeli and had the opportunity to ask questions and assume patient care.
[2019-04-18 06:30] VITALS: BP 115/52
[2019-04-18] MEDS: vitamin E 400 unit capsule PO SCH (07:20)
[2019-04-18] MEDS: vitamin D (cholecalciferol) 1,000 unit tablet PO SCH (07:20)
[2019-04-18] MEDS: sodium bicarbonate 650mg tablet PO SCH (07:20)
[2019-04-18] MEDS: aspirin 81mg tablet.DR PO SCH (07:20)
[2019-04-18] MEDS: carVEDilol 12.5mg tablet PO SCH (07:20)
[2019-04-18] MEDS: allopurinol 100mg tablet PO SCH (07:21)
[2019-04-18] MEDS: CefTRIAXone/D5W-Rocephin 1gm 50 ML IV SCH (07:21)
[2019-04-18] MEDS: heparin, porcine 5000 units/ml vial SQ SCH (07:21)
[2019-04-18] MEDS: tamsulosin 0.4mg capsule PO SCH (07:21)
[2019-04-18] MEDS ORDERED: LEVO250T58 PO (09:23)
--- NOTE | 2019-04-18 10:00 | NUR ---
Waiting on Ryan's bedside to deliver medication prior to discharge.
[2019-04-18 11:00] VITALS: BP 119/56
--- NOTE | 2019-04-18 12:08 | NUR ---
Prescription delivered to pt by Ryan's bedside. IV dc'd. All follow up appointments, meds and home care gone over with pt. He verbalizes understanding. Discharged home via with inessa in stable condition.
[2019-04-20] MEDS ORDERED: VANCOMYCIN LEVEL IV ONE (19:30)
== END 2019-04-18 12:16 | disposition home or self-care (01) | DRG 871 ==
LOC: ER 21:52 → PCU 3S 04-16 01:55 → CMPBEDREQ 04-16 01:59
PROVIDERS: ADMIT Internal Medicine; ATTEND Hospitalist
PROC: 5A09357 Assistance with Respiratory Ventilation, Less than 24 Consecutive Hours, Continuous Positive Airway Pressure (ICD-10-PCS; 2019-04-16)
PROC: 5A09357 Assistance with Respiratory Ventilation, Less than 24 Consecutive Hours, Continuous Positive Airway Pressure (ICD-10-PCS; 2019-04-17)
PROC: 5A09357 Assistance with Respiratory Ventilation, Less than 24 Consecutive Hours, Continuous Positive Airway Pressure (ICD-10-PCS; principal; 2019-04-18)
DX: A41.9 Sepsis, unspecified organism (principal); I50.33 Acute on chronic diastolic (congestive) heart failure; J18.9 Pneumonia, unspecified organism; I24.9 Acute ischemic heart disease, unspecified; I13.0 Hypertensive heart and chronic kidney disease with heart failure and stage 1 through stage 4 chronic kidney disease, or unspecified chronic kidney disease; L03.116 Cellulitis of left lower limb; N18.4 Chronic kidney disease, stage 4 (severe); J44.0 Chronic obstructive pulmonary disease with (acute) lower respiratory infection; E11.22 Type 2 diabetes mellitus with diabetic chronic kidney disease; E11.65 Type 2 diabetes mellitus with hyperglycemia; Z79.82 Long term (current) use of aspirin; Z79.899 Other long term (current) drug therapy
CPT/HCPCS: 36415; 71045; 80053; 81001; 82948; 83036; 83605; 83880; 84145; 84484; 85025; 85610; 85730; 87040; 87081; 93005; 96365; 96375; 99285; G0378; J0696; J1644; J1940; J2405; J3370

== ENCOUNTER 2019-04-22 07:26 | Inpatient (IN) | payer MEDICARE, OTHER ==
[~2019-04-22] VITALS: Ht 185.4 cm; Wt 120.0 kg
[~2019-04-22 07:26] MED LIST changes: +ALLO100T PO; +FLO0.4C PO; -FURO-149 PO; +LEVO250T58 PO; +SODI325T PO
--- NOTE | 2019-04-22 07:48 | NUR ---
DR. ZAMARRIPA AT BEDSIDE.
[2019-04-22] MEDS ORDERED: TETanus/Pertussis (Acell)/Diphther VAC/PF (Tdap-Adult) 0.5ml syringe IM ONE (08:05)
--- NOTE | 2019-04-22 08:36 | NUR ---
ASHISH BACK IN THE ROOM FROM CT.
[2019-04-22] MEDS ORDERED: iohexol 350MG/ML 100ml bottle IV ONE (08:41)
[2019-04-22 08:46] LABS: BASOPHILS # (AUTO) 0.1 X10'3 (0-0.2); BASOPHILS % (AUTO) 0.4 % (0-1); EOSINOPHILS # (AUTO) 0.2 X10'3 (0-0.9); EOSINOPHILS % (AUTO) 1.2 % (0-6); HEMATOCRIT 36.4 % (42.0-52.0); LYMPHOCYTES # (AUTO) 1.8 X10'3 (1.1-4.8); LYMPHOCYTES % (AUTO) 12.6 % (21-51); MEAN CORPUSCULAR HEMOGLOBIN 29.7 PG (27.0-31.0); MEAN CORPUSCULAR VOLUME 89.9 FL (78-98); MONOCYTES # (AUTO) 1.1 X10'3 (0-0.9); MONOCYTES % (AUTO) 7.9 % (2-12); NEUTROPHILS # (AUTO) 11.1 X10'3 (1.8-7.7); NEUTROPHILS % (AUTO) 77.9 % (42-75); PLATELET COUNT 315 X10'3 (140-440); RED BLOOD COUNT 4.05 X10'6 (4.70-6.10); RED CELL DISTRIBUTION WIDTH 15.2 % (11.5-14.5); WHITE BLOOD COUNT 14.3 X10'3 (4.5-11.0)
[2019-04-22 08:57] LABS: CLARITY,URINE CLEAR (Clear); COLOR,URINE YELLOW (Yellow); GLUCOSE, URINE NEGATIVE (Neg); KETONES,URINE NEGATIVE (Neg); LEUKOCYTE ESTERASE ,URINE NEGATIVE (Neg); NITRITES, URINE NEGATIVE (Neg); OCCULT BLOOD,URINE NEGATIVE (Neg); PROTEIN,URINE 30 mg/dl (Neg); UROBILINOGEN,URINE 0.2 E.U/dL (0.2-1.0)
[2019-04-22 08:58] LABS: ALANINE AMINOTRANSFERASE 37 U/L (12-78); ALBUMIN 2.9 G/DL (3.4-5.0); ALBUMIN/GLOBULIN RATIO 0.6 (1.1-1.5); ALKALINE PHOSPHATASE 70 IU/L (46-116); ANION GAP 13 (8-16); ASPARTATE AMINO TRANSFERASE 19 U/L (10-37); BILIRUBIN,TOTAL 0.5 MG/DL (0.1-1.0); BLOOD UREA NITROGEN 56 MG/DL (7-18); BUN/CREATININE RATIO 22.4 (5.4-32.0); CALCIUM 9.6 MG/DL (8.5-10.1); CHLORIDE 106 MMOL/L (99-107); GLUCOSE 143 MG/DL (70-104); POTASSIUM 4.6 MMOL/L (3.5-5.1); SODIUM 139 MMOL/L (135-145); TOTAL PROTEIN 7.4 G/DL (6.4-8.2); eGFR 26 ML/MIN
[2019-04-22 09:05] LABS: UA COLLECTION TYPE CLN CATCH MIDSTREAM
[2019-04-22 09:06] LABS: MUCUS STRANDS FEW /LPF (Neg); SQUAMOUS EPITHELIAL CELL,UR FEW /LPF (FEW)
[2019-04-22 09:08] LABS: COARSE GRANULAR CAST 0-3 /LPF (NEGATIVE); FINE GRANULAR CAST 0-3 /LPF (NEGATIVE)
[2019-04-22 09:09] LABS: BACTERIA,URINE FEW /HPF (Neg); RBC,URINE 0-2 /HPF (0-2); WBC,URINE 0-4 /HPF (0-4)
[2019-04-22 09:11] LABS: PARTIAL THROMBOPLASTIN TIME 28 SECONDS (22-32)
[2019-04-22 09:27] LABS: PLATELET ESTIMATE NORMAL; TOTAL CELLS COUNTED 100
[2019-04-22] MEDS ORDERED: vancomycin/NS 1 GM ADD-VANTAGE 250 ML IV ONE (10:20)
[2019-04-22] MEDS ORDERED: normal saline 1000ML IV soln IVB ONE (10:20)
[2019-04-22] MEDS ORDERED: mag hydrox/Alum hydrox/simeth 30ml oral suspension PO PRN (10:50)
[2019-04-22] MEDS ORDERED: dextrose 50%-water 50ml dispensing syringe IV PRN ×2 (10:50)
[2019-04-22] MEDS ORDERED: MESSAGE TO PHARMACY PO ONE (10:50)
[2019-04-22] MEDS ORDERED: magnesium hydroxide 30ml (MOM) UD suspension PO PRN (10:50)
[2019-04-22] MEDS ORDERED: HYDROcodone/acetaminophen 10/325mg tab PO PRN (10:50)
[2019-04-22] MEDS ORDERED: dextrose ORAL solution 15 GM/59 ML bottle PO PRN ×2 (10:50)
[2019-04-22] MEDS ORDERED: glucagon, human recombinant 1mg kit SUBCUT PRN (10:50)
[2019-04-22] MEDS ORDERED: ondansetron/PF 4mg/2ml inj IV PRN (10:50)
[2019-04-22] MEDS ORDERED: insulin Lispro (HumaLOG) vial - multi-dose SQ SCH (10:50)
[2019-04-22] MEDS ORDERED: morphine 2 MG/ML inj. syringe IV PRN (10:50)
[2019-04-22] MEDS ORDERED: pneumococcal 23-VAL P-sac vacc 25 mcg/0.5ml vial IMVAC ONE (11:25)
--- NOTE | 2019-04-22 11:32 | NUR ---
calledto give report.nurse is unavailable to take report
--- NOTE | 2019-04-22 11:38 | NUR ---
Patient in room [facility] 357. I have received report from HIPOLITO Trevino and had the opportunity to ask questions and assume patient care.
[2019-04-22 12:00] VITALS: BP 167/65
[2019-04-22] MEDS: normal saline 1000ml 1,000 ML IV SCH ×2 (13:04→22:36)
[2019-04-22] MEDS: ceFAZolin 1GM/D5W- ADD-VANTAGE 50 ML IV SCH ×2 (13:05→17:16)
[2019-04-22 18:00] VITALS: BP 131/60
--- NOTE | 2019-04-22 18:39 | NUR ---
Problems reprioritized. Patient report given, questions answered & plan of care reviewed with HIPOLITO Virgen.
--- NOTE | 2019-04-22 18:47 | NUR ---
Patient in room [facility] 357. I have received report from Sherly MCMILLAN and had the opportunity to ask questions and assume patient care.
[2019-04-22] MEDS: sodium bicarbonate 650mg tablet PO SCH (19:57)
[2019-04-22] MEDS: carVEDilol 12.5mg tablet PO SCH (19:57)
[2019-04-22] MEDS: docusate sod 100mg capsule PO SCH (19:57)
[2019-04-22] MEDS: heparin, porcine 5000 units/ml vial SQ SCH (19:58)
[2019-04-22] MEDS: insulin glargine (Lantus) pen - multi-dose SQ SCH (21:00)
[2019-04-23] VITALS: BP 132/58
[2019-04-23] MEDS: ceFAZolin 1GM/D5W- ADD-VANTAGE 50 ML IV SCH ×3 (00:37→15:30)
--- NOTE | 2019-04-23 00:59 | NUR ---
The Acuchecks were counseled Addendum: 04/23/19 at 0100 by Promise Frankel RN Amended: Links added.
--- NOTE | 2019-04-23 01:01 | NUR ---
All blood sugar checks were canceled due to low A1c Addendum: 04/23/19 at 0102 by Promise Frankel RN Amended: Links added.
[2019-04-23] MEDS: HYDROcodone/acetaminophen 5mg/325mg tablet PO PRN (04:23)
[2019-04-23 06:13] LABS: ALBUMIN 2.5 G/DL (3.4-5.0); ANION GAP 10 (8-16); BASOPHILS # (AUTO) 0.1 X10'3 (0-0.2); BASOPHILS % (AUTO) 0.6 % (0-1); BLOOD UREA NITROGEN 43 MG/DL (7-18); BUN/CREATININE RATIO 18.9 (5.4-32.0); CALCIUM 8.4 MG/DL (8.5-10.1); CHLORIDE 109 MMOL/L (99-107); CREATININE 2.27 MG/DL (0.60-1.10); EOSINOPHILS # (AUTO) 0.1 X10'3 (0-0.9); EOSINOPHILS % (AUTO) 1.3 % (0-6); GLUCOSE 112 MG/DL (70-104); HEMATOCRIT 33.1 % (42.0-52.0); HEMOGLOBIN 10.9 g/dl (14.0-17.9); LYMPHOCYTES # (AUTO) 1.6 X10'3 (1.1-4.8); LYMPHOCYTES % (AUTO) 14.7 % (21-51); MEAN CORPUSCULAR HEMOGLOBIN 29.7 PG (27.0-31.0); MEAN CORPUSCULAR VOLUME 90.2 FL (78-98); MEAN PLATELET VOLUME 6.7 FL (7.4-10.4); MONOCYTES # (AUTO) 1.1 X10'3 (0-0.9); MONOCYTES % (AUTO) 10.2 % (2-12); NEUTROPHILS # (AUTO) 8.1 X10'3 (1.8-7.7); NEUTROPHILS % (AUTO) 73.2 % (42-75); PLATELET COUNT 316 X10'3 (140-440); POTASSIUM 3.9 MMOL/L (3.5-5.1); RED BLOOD COUNT 3.67 X10'6 (4.70-6.10); RED CELL DISTRIBUTION WIDTH 14.9 % (11.5-14.5); SODIUM 141 MMOL/L (135-145); TOTAL CARBON DIOXIDE 22.2 MMOL/L (24-32); eGFR 29 ML/MIN
--- NOTE | 2019-04-23 06:40 | NUR ---
Problems reprioritized. Patient report given, questions answered & plan of care reviewed with Sherly RN.
--- NOTE | 2019-04-23 06:40 | NUR ---
Patient in room [facility] 357. I have received report from HIPOLITO Virgen and had the opportunity to ask questions and assume patient care.
[2019-04-23 07:41] LABS: PLATELET ESTIMATE NORMAL; TOTAL CELLS COUNTED 100
[2019-04-23 08:00] VITALS: BP_SYST 116; BP_SYST 117; BP_SYST 155; BP_SYST 98; BP_DIAS 45; BP_DIAS 49; BP_DIAS 53; BP_DIAS 67
[2019-04-23] MEDS: morphine 2 MG/ML inj. syringe IV PRN ×2 (08:20→15:31)
[2019-04-23] MEDS: carVEDilol 12.5mg tablet PO SCH ×2 (08:26→20:30)
[2019-04-23] MEDS: docusate sod 100mg capsule PO SCH ×2 (08:26→20:30)
[2019-04-23] MEDS: aspirin 81mg tablet.DR PO SCH (08:26)
[2019-04-23] MEDS: allopurinol 100mg tablet PO SCH (08:27)
[2019-04-23] MEDS: lisinopril 2.5mg tablet PO SCH (08:27)
[2019-04-23] MEDS: sodium bicarbonate 650mg tablet PO SCH ×2 (08:27→20:30)
[2019-04-23] MEDS: heparin, porcine 5000 units/ml vial SQ SCH ×2 (08:30→20:29)
[2019-04-23] MEDS: tamsulosin 0.4mg capsule PO SCH (08:38)
[2019-04-23] MEDS: normal saline 1000ml 1,000 ML IV SCH ×2 (08:40→20:35)
[2019-04-23 12:00] VITALS: BP 135/48
[2019-04-23] MEDS: acetaminophen 325mg tablet PO PRN (16:16)
[2019-04-23 18:00] VITALS: BP 121/49
--- NOTE | 2019-04-23 18:21 | NUR ---
Problems reprioritized. Patient report given, questions answered & plan of care reviewed with HIPOLITO Virgen.
--- NOTE | 2019-04-23 18:46 | NUR ---
Patient in room [facility] 357. I have received report from Sherly MCMILLAN and had the opportunity to ask questions and assume patient care.
[2019-04-23 20:00] VITALS: BP_SYST 150; BP_SYST 171; BP_DIAS 71; BP_DIAS 79
[2019-04-23] MEDS: insulin glargine (Lantus) pen - multi-dose SQ SCH (21:00)
[2019-04-24] VITALS (7 sets, daily range): BP systolic 96–165; BP diastolic 44–64
[2019-04-24] MEDS: ceFAZolin 1GM/D5W- ADD-VANTAGE 50 ML IV SCH ×3 (00:14→16:27)
[2019-04-24] MEDS: morphine 2 MG/ML inj. syringe IV PRN ×3 (01:55→11:37)
[2019-04-24 06:15] LABS: BASOPHILS % (AUTO) 0.4 % (0-1); EOSINOPHILS # (AUTO) 0.1 X10'3 (0-0.9); HEMATOCRIT 32.4 % (42.0-52.0); LYMPHOCYTES # (AUTO) 1.2 X10'3 (1.1-4.8); LYMPHOCYTES % (AUTO) 11.4 % (21-51); MEAN CORPUSCULAR HEMOGLOBIN 30.3 PG (27.0-31.0); MEAN CORPUSCULAR HGB CONC 33.8 g/dL (33.0-36.5); MEAN CORPUSCULAR VOLUME 89.7 FL (78-98); MEAN PLATELET VOLUME 6.2 FL (7.4-10.4); MONOCYTES # (AUTO) 1.4 X10'3 (0-0.9); MONOCYTES % (AUTO) 13.4 % (2-12); NEUTROPHILS # (AUTO) 7.8 X10'3 (1.8-7.7); NEUTROPHILS % (AUTO) 73.8 % (42-75); PLATELET COUNT 316 X10'3 (140-440); RED BLOOD COUNT 3.61 X10'6 (4.70-6.10); RED CELL DISTRIBUTION WIDTH 14.8 % (11.5-14.5); WHITE BLOOD COUNT 10.6 X10'3 (4.5-11.0)
[2019-04-24] MEDS: normal saline 1000ml 1,000 ML IV SCH ×2 (06:18→16:27)
[2019-04-24 06:23] LABS: ALBUMIN 2.3 G/DL (3.4-5.0); ANION GAP 10 (8-16); BLOOD UREA NITROGEN 36 MG/DL (7-18); BUN/CREATININE RATIO 17.1 (5.4-32.0); CALCIUM 7.9 MG/DL (8.5-10.1); CHLORIDE 108 MMOL/L (99-107); CREATININE 2.11 MG/DL (0.60-1.10); GLUCOSE 121 MG/DL (70-104); POTASSIUM 4.1 MMOL/L (3.5-5.1); SODIUM 139 MMOL/L (135-145); TOTAL CARBON DIOXIDE 21.3 MMOL/L (24-32); eGFR 31 ML/MIN
--- NOTE | 2019-04-24 06:23 | NUR ---
Problems reprioritized. Patient report given, questions answered & plan of care reviewed with Genesis MCMILLAN.
--- NOTE | 2019-04-24 06:45 | NUR ---
Patient in room [facility] 357. I have received report from HIPOLITO Virgen and had the opportunity to ask questions and assume patient care.
[2019-04-24] MEDS: sodium bicarbonate 650mg tablet PO SCH ×2 (07:46→19:11)
[2019-04-24] MEDS: lisinopril 2.5mg tablet PO SCH (07:47)
[2019-04-24] MEDS: docusate sod 100mg capsule PO SCH ×2 (07:47→19:12)
[2019-04-24] MEDS: allopurinol 100mg tablet PO SCH (07:47)
[2019-04-24] MEDS: aspirin 81mg tablet.DR PO SCH (07:47)
[2019-04-24] MEDS: tamsulosin 0.4mg capsule PO SCH (07:47)
[2019-04-24] MEDS: carVEDilol 12.5mg tablet PO SCH ×2 (07:47→19:10)
[2019-04-24] MEDS: heparin, porcine 5000 units/ml vial SQ SCH ×2 (07:48→19:08)
--- NOTE | 2019-04-24 08:01 | NUR ---
PAGER ID: [phone] MESSAGE: Genesis Calderón [phone] re Mihaela [phone] pt states pain medication not helping, requesting muscle relaxer for cramping leg pain, thank you
--- NOTE | 2019-04-24 08:28 | NUR ---
order received from Dr Trujillo for 2.5 mg IV valium x1 dose. will administer and continue to monitor.
[2019-04-24] MEDS ORDERED: diazepam inj 5 MG/ML inj. IV ONE (08:30)
[2019-04-24 09:47] LABS: PLATELET ESTIMATE NORMAL; TOTAL CELLS COUNTED 100
--- NOTE | 2019-04-24 11:31 | NUR ---
pt has fever 101.8, Dr Trujillo notified, no new orders received. Will administer tylenol and continue to monito.
[2019-04-24] MEDS: acetaminophen 325mg tablet PO PRN ×2 (11:34→19:10)
[2019-04-24] MEDS ORDERED: normal saline 500ml IV soln 1,000 ML IV ONE (17:45)
--- NOTE | 2019-04-24 18:30 | NUR ---
Patient in room [facility] 344. I have received report from Genesis MCMILLAN and had the opportunity to ask questions and assume patient care. Patient stating not going to be able to eat dinner, at bedside, will continue to monitor.
--- NOTE | 2019-04-24 18:36 | NUR ---
Problems reprioritized. Patient report given, questions answered & plan of care reviewed with HIPOLITO Johnston and nicholas Ashby RN.
[2019-04-24] MEDS: lactobacillus rhamnosus 10,000 MMU CELLS/CAPSULE PO SCH (19:12)
--- NOTE | 2019-04-24 20:26 | NUR ---
Notified Dr. Garza of patient's temp of 101.8 and pain, heat, red to right lower leg. Received order for VL venous, no repeat blood culture at this time related to normal WBC of 10.6. Will continue to monitor.
[2019-04-24] MEDS: insulin glargine (Lantus) pen - multi-dose SQ SCH (20:38)
--- NOTE | 2019-04-24 20:40 | NUR ---
Patient refused cold wash clothes when Tylenol given, is accepting at this time, additionally refused orthostatics until midnight due to need for valium and morphine to tolerate. Will continue to monitor,.
[2019-04-25] VITALS: BP 122/59
[2019-04-25] MEDS: ceFAZolin 1GM/D5W- ADD-VANTAGE 50 ML IV SCH ×3 (00:29→16:26)
[2019-04-25] MEDS: normal saline 1000ml 1,000 ML IV SCH (00:30)
[2019-04-25 04:57] LABS: BASOPHILS % (AUTO) 0.3 % (0-1); EOSINOPHILS % (AUTO) 0.4 % (0-6); HEMATOCRIT 31.1 % (42.0-52.0); HEMOGLOBIN 10.5 g/dl (14.0-17.9); LYMPHOCYTES # (AUTO) 1.2 X10'3 (1.1-4.8); MEAN CORPUSCULAR HEMOGLOBIN 30.2 PG (27.0-31.0); MEAN CORPUSCULAR HGB CONC 33.7 g/dL (33.0-36.5); MEAN CORPUSCULAR VOLUME 89.7 FL (78-98); MEAN PLATELET VOLUME 6.7 FL (7.4-10.4); MONOCYTES # (AUTO) 1.9 X10'3 (0-0.9); MONOCYTES % (AUTO) 14.2 % (2-12); NEUTROPHILS # (AUTO) 10.4 X10'3 (1.8-7.7); NEUTROPHILS % (AUTO) 76.1 % (42-75); PLATELET COUNT 318 X10'3 (140-440); RED BLOOD COUNT 3.47 X10'6 (4.70-6.10); WHITE BLOOD COUNT 13.6 X10'3 (4.5-11.0)
[2019-04-25 04:58] LABS: ALBUMIN 2.1 G/DL (3.4-5.0); ANION GAP 9 (8-16); BLOOD UREA NITROGEN 32 MG/DL (7-18); CHLORIDE 109 MMOL/L (99-107); CREATININE 2.28 MG/DL (0.60-1.10); GLUCOSE 111 MG/DL (70-104); POTASSIUM 3.9 MMOL/L (3.5-5.1); SODIUM 140 MMOL/L (135-145); TOTAL CARBON DIOXIDE 21.8 MMOL/L (24-32); eGFR 29 ML/MIN
--- NOTE | 2019-04-25 06:29 | NUR ---
Patient in room [facility] 344. I have received report from HIPOLITO Johnston and nicholas Ashby RN and had the opportunity to ask questions and assume patient care.
[2019-04-25 07:03] VITALS: BP 153/56
[2019-04-25] MEDS: morphine 2 MG/ML inj. syringe IV PRN ×2 (07:54→12:56)
[2019-04-25] MEDS: carVEDilol 12.5mg tablet PO SCH ×2 (07:56→19:53)
[2019-04-25] MEDS: lisinopril 2.5mg tablet PO SCH (07:57)
[2019-04-25] MEDS: tamsulosin 0.4mg capsule PO SCH (07:57)
[2019-04-25] MEDS: docusate sod 100mg capsule PO SCH ×2 (07:57→19:48)
[2019-04-25] MEDS: sodium bicarbonate 650mg tablet PO SCH ×2 (07:57→19:48)
[2019-04-25] MEDS: aspirin 81mg tablet.DR PO SCH (07:57)
[2019-04-25] MEDS: allopurinol 100mg tablet PO SCH (07:58)
[2019-04-25] MEDS: heparin, porcine 5000 units/ml vial SQ SCH ×2 (07:58→19:50)
[2019-04-25] MEDS: lactobacillus rhamnosus 10,000 MMU CELLS/CAPSULE PO SCH ×2 (07:58→19:48)
[2019-04-25 08:00] VITALS: BP_SYST 137; BP_SYST 151; BP_SYST 153; BP_DIAS 56; BP_DIAS 71; BP_DIAS 74
[2019-04-25 11:00] VITALS: BP 177/64
--- NOTE | 2019-04-25 18:20 | NUR ---
Problems reprioritized. Patient report given, questions answered & plan of care reviewed with HIPOLITO Johnston and nicholas Ashby RN.
--- NOTE | 2019-04-25 18:30 | NUR ---
Patient in room [facility] 344. I have received report from Genesis MCMILLAN and had the opportunity to ask questions and assume patient care. Patient finished with dinner, will continue to monitor.
[2019-04-25 19:00] VITALS: BP 162/52
[2019-04-25 19:32] VITALS: BP_SYST 125; BP_SYST 138; BP_SYST 143; BP_DIAS 50; BP_DIAS 52; BP_DIAS 54
[2019-04-25] MEDS: acetaminophen 325mg tablet PO PRN (19:47)
[2019-04-25] MEDS: diazepam 5mg tablet PO PRN (19:47)
[2019-04-25] MEDS: insulin glargine (Lantus) pen - multi-dose SQ SCH (21:00)
[2019-04-26] VITALS: BP 143/58
[2019-04-26] MEDS: ceFAZolin 1GM/D5W- ADD-VANTAGE 50 ML IV SCH ×4 (00:32→15:55)
[2019-04-26 05:12] LABS: BASOPHILS % (AUTO) 0.3 % (0-1); EOSINOPHILS # (AUTO) 0.1 X10'3 (0-0.9); EOSINOPHILS % (AUTO) 0.9 % (0-6); HEMATOCRIT 29.4 % (42.0-52.0); HEMOGLOBIN 9.8 g/dl (14.0-17.9); LYMPHOCYTES # (AUTO) 1.4 X10'3 (1.1-4.8); LYMPHOCYTES % (AUTO) 10.9 % (21-51); MEAN CORPUSCULAR HEMOGLOBIN 29.8 PG (27.0-31.0); MEAN CORPUSCULAR HGB CONC 33.5 g/dL (33.0-36.5); MEAN PLATELET VOLUME 6.4 FL (7.4-10.4); MONOCYTES # (AUTO) 1.7 X10'3 (0-0.9); NEUTROPHILS # (AUTO) 9.9 X10'3 (1.8-7.7); NEUTROPHILS % (AUTO) 74.9 % (42-75); PLATELET COUNT 347 X10'3 (140-440); RED CELL DISTRIBUTION WIDTH 14.5 % (11.5-14.5); WHITE BLOOD COUNT 13.2 X10'3 (4.5-11.0)
[2019-04-26 05:27] LABS: ALBUMIN 1.9 G/DL (3.4-5.0); ANION GAP 9 (8-16); BLOOD UREA NITROGEN 34 MG/DL (7-18); CALCIUM 8.6 MG/DL (8.5-10.1); CHLORIDE 108 MMOL/L (99-107); CREATININE 2.27 MG/DL (0.60-1.10); GLUCOSE 123 MG/DL (70-104); SODIUM 139 MMOL/L (135-145); TOTAL CARBON DIOXIDE 22.3 MMOL/L (24-32); eGFR 29 ML/MIN
--- NOTE | 2019-04-26 06:38 | NUR ---
Problems reprioritized. Patient report given, questions answered & plan of care reviewed with Genesis MCMILLAN.
[2019-04-26 07:00] VITALS: BP 142/61
[2019-04-26] MEDS: aspirin 81mg tablet.DR PO SCH (07:44)
[2019-04-26] MEDS: lisinopril 2.5mg tablet PO SCH (07:44)
[2019-04-26] MEDS: docusate sod 100mg capsule PO SCH ×2 (07:44→19:33)
[2019-04-26] MEDS: sodium bicarbonate 650mg tablet PO SCH ×2 (07:44→19:34)
[2019-04-26] MEDS: lactobacillus rhamnosus 10,000 MMU CELLS/CAPSULE PO SCH ×2 (07:44→19:34)
[2019-04-26] MEDS: tamsulosin 0.4mg capsule PO SCH (07:44)
[2019-04-26] MEDS: allopurinol 100mg tablet PO SCH (07:44)
[2019-04-26] MEDS: carVEDilol 12.5mg tablet PO SCH ×2 (07:44→19:34)
[2019-04-26] MEDS: heparin, porcine 5000 units/ml vial SQ SCH ×2 (07:45→19:35)
[2019-04-26 08:00] VITALS: BP_SYST 143; BP_SYST 147; BP_SYST 154; BP_DIAS 62; BP_DIAS 65; BP_DIAS 67
[2019-04-26] MEDS ORDERED: levoFLOXACIN-Levaquin 250mg/D5 50 ML IV SCH (09:45)
[2019-04-26 11:00] VITALS: BP 166/71
[2019-04-26] MEDS: diazepam 5mg tablet PO PRN (18:33)
--- NOTE | 2019-04-26 18:48 | NUR ---
Problems reprioritized. Patient report given, questions answered & plan of care reviewed with HIPOLITO Ly and nicholas Saavedra RN.
[2019-04-26 19:00] VITALS: BP 170/82
[2019-04-26] MEDS: insulin glargine (Lantus) pen - multi-dose SQ SCH (21:00)
[2019-04-26] MEDS: morphine 2 MG/ML inj. syringe IV PRN (22:34)
[2019-04-27] VITALS: BP 136/68
[2019-04-27] MEDS: ceFAZolin 1GM/D5W- ADD-VANTAGE 50 ML IV SCH ×2 (00:37→07:52)
[2019-04-27 05:17] LABS: BASOPHILS # (AUTO) 0.1 X10'3 (0-0.2); BASOPHILS % (AUTO) 0.6 % (0-1); EOSINOPHILS # (AUTO) 0.1 X10'3 (0-0.9); EOSINOPHILS % (AUTO) 0.6 % (0-6); HEMATOCRIT 30.4 % (42.0-52.0); LYMPHOCYTES # (AUTO) 1.8 X10'3 (1.1-4.8); LYMPHOCYTES % (AUTO) 13.6 % (21-51); MEAN CORPUSCULAR HEMOGLOBIN 29.5 PG (27.0-31.0); MEAN CORPUSCULAR VOLUME 89.3 FL (78-98); MEAN PLATELET VOLUME 6.5 FL (7.4-10.4); MONOCYTES # (AUTO) 1.3 X10'3 (0-0.9); MONOCYTES % (AUTO) 9.6 % (2-12); NEUTROPHILS # (AUTO) 10.1 X10'3 (1.8-7.7); NEUTROPHILS % (AUTO) 75.6 % (42-75); PLATELET COUNT 401 X10'3 (140-440); RED BLOOD COUNT 3.41 X10'6 (4.70-6.10); RED CELL DISTRIBUTION WIDTH 14.5 % (11.5-14.5); WHITE BLOOD COUNT 13.3 X10'3 (4.5-11.0)
[2019-04-27 05:20] LABS: ANION GAP 10 (8-16); BLOOD UREA NITROGEN 40 MG/DL (7-18); BUN/CREATININE RATIO 17.5 (5.4-32.0); CALCIUM 8.4 MG/DL (8.5-10.1); CHLORIDE 108 MMOL/L (99-107); CREATININE 2.29 MG/DL (0.60-1.10); GLUCOSE 118 MG/DL (70-104); SODIUM 140 MMOL/L (135-145); TOTAL CARBON DIOXIDE 22.2 MMOL/L (24-32); eGFR 29 ML/MIN
--- NOTE | 2019-04-27 06:05 | NUR ---
Patient in room [facility] 344. I have received report from HIPOLITO Ly and had the opportunity to ask questions and assume patient care.
[2019-04-27 07:45] VITALS: BP 131/50
[2019-04-27] MEDS: aspirin 81mg tablet.DR PO SCH (07:53)
[2019-04-27] MEDS: docusate sod 100mg capsule PO SCH ×2 (07:53→19:31)
[2019-04-27] MEDS: lactobacillus rhamnosus 10,000 MMU CELLS/CAPSULE PO SCH ×2 (07:53→19:31)
[2019-04-27] MEDS: carVEDilol 12.5mg tablet PO SCH ×2 (07:53→19:32)
[2019-04-27] MEDS: tamsulosin 0.4mg capsule PO SCH (07:54)
[2019-04-27] MEDS: sodium bicarbonate 650mg tablet PO SCH ×2 (07:54→19:32)
[2019-04-27] MEDS: lisinopril 2.5mg tablet PO SCH (07:54)
[2019-04-27] MEDS: allopurinol 100mg tablet PO SCH (07:55)
[2019-04-27] MEDS: heparin, porcine 5000 units/ml vial SQ SCH ×2 (07:55→19:33)
[2019-04-27] MEDS ORDERED: linezolid 600mg tablet PO SCH (10:15)
[2019-04-27 12:00] VITALS: BP 135/56
[2019-04-27] MEDS: HYDROcodone/acetaminophen 5mg/325mg tablet PO PRN (17:48)
[2019-04-27 18:00] VITALS: BP 139/79
--- NOTE | 2019-04-27 18:15 | NUR ---
Problems reprioritized. Patient report given, questions answered & plan of care reviewed with HIPOLITO Berry.
--- NOTE | 2019-04-27 18:29 | NUR ---
Patient in room [facility] 344. I have received report from HIPOLITO Ruiz and had the opportunity to ask questions and assume patient care.
[2019-04-27] MEDS: insulin glargine (Lantus) pen - multi-dose SQ SCH (21:00)
[2019-04-28 00:18] VITALS: BP 137/65
--- NOTE | 2019-04-28 06:05 | NUR ---
Patient in room [facility] 344. I have received report from HIPOLITO Berry and had the opportunity to ask questions and assume patient care.
--- NOTE | 2019-04-28 06:26 | NUR ---
Problems reprioritized. Patient report given, questions answered & plan of care reviewed with HIPOLITO Ruiz.
[2019-04-28 07:05] VITALS: BP 140/69
[2019-04-28] MEDS ORDERED: levoFLOXACIN-Levaquin 500mg/D5 100 ML IV SCH (08:00)
[2019-04-28] MEDS: carVEDilol 12.5mg tablet PO SCH ×2 (08:19→19:48)
[2019-04-28] MEDS: docusate sod 100mg capsule PO SCH ×2 (08:19→19:44)
[2019-04-28] MEDS: lactobacillus rhamnosus 10,000 MMU CELLS/CAPSULE PO SCH ×2 (08:19→19:44)
[2019-04-28] MEDS: sodium bicarbonate 650mg tablet PO SCH ×2 (08:20→19:44)
[2019-04-28] MEDS: aspirin 81mg tablet.DR PO SCH (08:20)
[2019-04-28] MEDS: tamsulosin 0.4mg capsule PO SCH (08:20)
[2019-04-28] MEDS: lisinopril 2.5mg tablet PO SCH (08:21)
[2019-04-28] MEDS: allopurinol 100mg tablet PO SCH (08:21)
[2019-04-28] MEDS: heparin, porcine 5000 units/ml vial SQ SCH ×2 (08:22→19:48)
--- NOTE | 2019-04-28 09:00 | NUR ---
Patient complaining of itchiness up his right him where his IV site is. Levaquin was running. There is also some redness noted from the IV site and up the arm. The Levaquin was stopped and Dr. Kent will be notified.
[2019-04-28 11:23] VITALS: BP 136/45
[2019-04-28] MEDS ORDERED: CHOL50004 PO (11:29)
[2019-04-28 12:52] LABS: BASOPHILS # (AUTO) 0.1 X10'3 (0-0.2); BASOPHILS % (AUTO) 1.1 % (0-1); EOSINOPHILS # (AUTO) 0.1 X10'3 (0-0.9); EOSINOPHILS % (AUTO) 0.9 % (0-6); HEMATOCRIT 34.9 % (42.0-52.0); HEMOGLOBIN 11.3 g/dl (14.0-17.9); LYMPHOCYTES # (AUTO) 1.5 X10'3 (1.1-4.8); LYMPHOCYTES % (AUTO) 11.4 % (21-51); MEAN CORPUSCULAR HEMOGLOBIN 29.2 PG (27.0-31.0); MEAN CORPUSCULAR HGB CONC 32.5 g/dL (33.0-36.5); MEAN PLATELET VOLUME 6.4 FL (7.4-10.4); MONOCYTES # (AUTO) 0.9 X10'3 (0-0.9); MONOCYTES % (AUTO) 6.7 % (2-12); NEUTROPHILS # (AUTO) 10.2 X10'3 (1.8-7.7); NEUTROPHILS % (AUTO) 79.9 % (42-75); PLATELET COUNT 481 X10'3 (140-440); RED BLOOD COUNT 3.88 X10'6 (4.70-6.10); RED CELL DISTRIBUTION WIDTH 14.7 % (11.5-14.5); WHITE BLOOD COUNT 12.7 X10'3 (4.5-11.0)
[2019-04-28 13:06] LABS: ALANINE AMINOTRANSFERASE 31 U/L (12-78); ALBUMIN 2.3 G/DL (3.4-5.0); ALBUMIN/GLOBULIN RATIO 0.4 (1.1-1.5); ALKALINE PHOSPHATASE 101 IU/L (46-116); ANION GAP 11 (8-16); ASPARTATE AMINO TRANSFERASE 36 U/L (10-37); BILIRUBIN,TOTAL 0.4 MG/DL (0.1-1.0); BLOOD UREA NITROGEN 45 MG/DL (7-18); BUN/CREATININE RATIO 20.3 (5.4-32.0); CHLORIDE 106 MMOL/L (99-107); CREATININE 2.22 MG/DL (0.60-1.10); GLUCOSE 113 MG/DL (70-104); POTASSIUM 4.2 MMOL/L (3.5-5.1); SODIUM 139 MMOL/L (135-145); TOTAL CARBON DIOXIDE 22.2 MMOL/L (24-32); TOTAL PROTEIN 8.1 G/DL (6.4-8.2); eGFR 30 ML/MIN
--- NOTE | 2019-04-28 16:34 | NUR ---
Initial: Pt admit w/ cellulitis; now resolved per MD note. PO 100% regular diet meeting needs. Pt follows "ketogenic" diet at home though actually very low carb and not true keto diet. Pt received one dose zyvox; RD provided written/verbal zyvox ed w/ RD contact information provided. LB 04/28. Pt food preferences taken by RD and d/w dietary. Will continue to monitor. Rec: 1. continue regular diet 2. wt per rx Addendum: 04/28/19 at [address] Amended: Links added.
--- NOTE | 2019-04-28 18:00 | NUR ---
Problems reprioritized. Patient report given, questions answered & plan of care reviewed with HIPOLITO Berry.
--- NOTE | 2019-04-28 18:22 | NUR ---
Patient in room [facility] 344. I have received report from HIPOLITO Ruiz and had the opportunity to ask questions and assume patient care.
[2019-04-28 20:00] VITALS: BP 145/65
[2019-04-28] MEDS: insulin glargine (Lantus) pen - multi-dose SQ SCH (21:00)
[2019-04-29] VITALS: BP 128/59
[2019-04-29 05:19] LABS: BASOPHILS % (AUTO) 0.4 % (0-1); EOSINOPHILS # (AUTO) 0.2 X10'3 (0-0.9); EOSINOPHILS % (AUTO) 1.7 % (0-6); HEMATOCRIT 31.8 % (42.0-52.0); HEMOGLOBIN 10.6 g/dl (14.0-17.9); LYMPHOCYTES # (AUTO) 1.7 X10'3 (1.1-4.8); LYMPHOCYTES % (AUTO) 17.4 % (21-51); MEAN CORPUSCULAR HEMOGLOBIN 30.1 PG (27.0-31.0); MEAN CORPUSCULAR HGB CONC 33.3 g/dL (33.0-36.5); MEAN CORPUSCULAR VOLUME 90.6 FL (78-98); MEAN PLATELET VOLUME 6.6 FL (7.4-10.4); MONOCYTES % (AUTO) 10.7 % (2-12); NEUTROPHILS # (AUTO) 6.7 X10'3 (1.8-7.7); NEUTROPHILS % (AUTO) 69.8 % (42-75); PLATELET COUNT 416 X10'3 (140-440); RED BLOOD COUNT 3.51 X10'6 (4.70-6.10); RED CELL DISTRIBUTION WIDTH 15.2 % (11.5-14.5); WHITE BLOOD COUNT 9.7 X10'3 (4.5-11.0)
[2019-04-29 05:32] LABS: ALANINE AMINOTRANSFERASE 32 U/L (12-78); ALBUMIN 2.1 G/DL (3.4-5.0); ALBUMIN/GLOBULIN RATIO 0.4 (1.1-1.5); ALKALINE PHOSPHATASE 84 IU/L (46-116); ANION GAP 10 (8-16); ASPARTATE AMINO TRANSFERASE 35 U/L (10-37); BILIRUBIN,TOTAL 0.4 MG/DL (0.1-1.0); BLOOD UREA NITROGEN 48 MG/DL (7-18); BUN/CREATININE RATIO 20.2 (5.4-32.0); CALCIUM 8.7 MG/DL (8.5-10.1); CHLORIDE 108 MMOL/L (99-107); CREATININE 2.38 MG/DL (0.60-1.10); GLUCOSE 105 MG/DL (70-104); POTASSIUM 4.2 MMOL/L (3.5-5.1); SODIUM 141 MMOL/L (135-145); TOTAL CARBON DIOXIDE 23.2 MMOL/L (24-32); TOTAL PROTEIN 7.3 G/DL (6.4-8.2); eGFR 27 ML/MIN
--- NOTE | 2019-04-29 06:26 | NUR ---
Problems reprioritized. Patient report given, questions answered & plan of care reviewed with HIPOLITO Arndt.
[2019-04-29 07:00] VITALS: BP 148/66
[2019-04-29] MEDS: carVEDilol 12.5mg tablet PO SCH (09:20)
[2019-04-29] MEDS: lactobacillus rhamnosus 10,000 MMU CELLS/CAPSULE PO SCH (09:20)
[2019-04-29] MEDS: aspirin 81mg tablet.DR PO SCH (09:20)
[2019-04-29] MEDS: sodium bicarbonate 650mg tablet PO SCH (09:21)
[2019-04-29] MEDS: heparin, porcine 5000 units/ml vial SQ SCH (09:21)
[2019-04-29] MEDS: tamsulosin 0.4mg capsule PO SCH (09:21)
[2019-04-29] MEDS: allopurinol 100mg tablet PO SCH (09:21)
[2019-04-29] MEDS: docusate sod 100mg capsule PO SCH (09:21)
[2019-04-29 11:00] VITALS: BP 130/60
[2019-04-29] MEDS ORDERED: AMOX-422 PO (13:53)
[2019-05-01] MEDS ORDERED: VANCOMYCIN LEVEL IV ONE (19:30)
== END 2019-04-29 16:40 | disposition home health service (06) | DRG 193 ==
LOC: ER 07:27 → SUR 3N 11:50 → CMPBEDREQ 19:43 → SUR 3N 04-24 19:54
PROVIDERS: ADMIT Internal Medicine; ATTEND Family Medicine
PROC: 5A09357 Assistance with Respiratory Ventilation, Less than 24 Consecutive Hours, Continuous Positive Airway Pressure (ICD-10-PCS; 2019-04-23)
PROC: 5A09357 Assistance with Respiratory Ventilation, Less than 24 Consecutive Hours, Continuous Positive Airway Pressure (ICD-10-PCS; 2019-04-24)
PROC: 5A09357 Assistance with Respiratory Ventilation, Less than 24 Consecutive Hours, Continuous Positive Airway Pressure (ICD-10-PCS; principal; 2019-04-25)
DX: J18.9 Pneumonia, unspecified organism (principal); N17.0 Acute kidney failure with tubular necrosis; L03.116 Cellulitis of left lower limb; I50.32 Chronic diastolic (congestive) heart failure; N18.4 Chronic kidney disease, stage 4 (severe); I13.0 Hypertensive heart and chronic kidney disease with heart failure and stage 1 through stage 4 chronic kidney disease, or unspecified chronic kidney disease; J44.0 Chronic obstructive pulmonary disease with (acute) lower respiratory infection; L03.115 Cellulitis of right lower limb; E11.22 Type 2 diabetes mellitus with diabetic chronic kidney disease; E86.0 Dehydration; N40.0 Benign prostatic hyperplasia without lower urinary tract symptoms; T36.8X5A Adverse effect of other systemic antibiotics, initial encounter; M10.9 Gout, unspecified; R21 Rash and other nonspecific skin eruption; I70.1 Atherosclerosis of renal artery; I95.9 Hypotension, unspecified; W18.39XA Other fall on same level, initial encounter; Y93.89 Activity, other specified; Z79.82 Long term (current) use of aspirin; Z79.899 Other long term (current) drug therapy; Z88.1 Allergy status to other antibiotic agents; Y92.098 Other place in other non-institutional residence as the place of occurrence of the external cause; Y99.8 Other external cause status
CPT/HCPCS: 36415; 70450; 71045; 73564; 73700; 80048; 80053; 81001; 82948; 83605; 83880; 84145; 84484; 85025; 85610; 85651; 85730; 86140; 87040; 87081; 90471; 90732; 93005; 93306; 93880; 93971; 96365; 97110; 97116; 97161; 97530; 99285; G0378; J0690; J1644; J1815; J1956; J2270; J3360; J3370; J7030; J7040; Q9967